=== PATIENT | female | born 2000 | race Caucasian/White ===

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

== ENCOUNTER 2022-02-04 13:46 | Emergency (ER) | payer OTHER, SELFPAY ==
--- NOTE | 2022-02-04 13:54 | ED.FEMALEGU ---
HPI - Female Genitourinary General Chief complaint: Back Pain/Injury Stated complaint: lower back pain Time Seen by Provider: 02/04/22 14:13 Source: patient and RN notes reviewed Mode of arrival: ambulatory Limitations: no limitations History of Present Illness MD elicited complaint: back pain Related Data Home Medications Medication Instructions Recorded Confirmed No Home Medications 02/04/22 02/04/22 Allergies Allergy/AdvReac Type Severity Reaction Status Date / Time Sulfa (Sulfonamide Allergy Unknown HIVES Verified 02/04/22 14:04 Antibiotics) Review of Systems Review of Systems: CONSTITUTIONAL: Denies malaise, chills, sweats, or fever. CARDIOVASCULAR: Denies chest pain, palpitations, or edema. RESPIRATORY: Denies cough or dyspnea. GASTROINTESTINAL: Denies abdominal pain, nausea, vomiting, diarrhea GENITOURINARY: Reports dysuria, frequency, urgency, suprapubic pressure. Denies flank pain or hematuria. SKIN: Denies rash or itching. MUSCULOSKELETAL: Denies back pain or myalgia. All systems reviewed & are unremarkable except as noted in HPI and below PMFSH Social History Social History (Updated 02/13/21 @ 14:56 by Remy Miranda MD) Smoking status: Never smoker Alcohol intake: never Substance use: current Other substance usage details: Daily Gender identity (if verbalized by the patient): Female Comments At time of signature, agree with nursing past medical, surgical, social and family history. There is no relevant family history pertinent to the presenting complaint Exam Narrative: GENERAL: Well-appearing, well-nourished, and in no acute distress. HEAD: Normocephalic. EYES: PERRLA, conjunctivae clear. NECK: Supple. No lymphadenopathy CHEST: Clear to auscultation. No respiratory distress. HEART: Regular rate and rhythm. ABDOMEN: Soft, nontender upon palpation, nondistended, normal active bowel sounds, no palpable or pulsatile masses, no guarding. No CVA tenderness SKIN: Warm, dry, no rash. NEURO: Alert and oriented x3. PSYCH: Normal mood and affect Course Course Emergency Course: Patient is aware of diagnosis, understands and agrees to treatment plan. Anticipatory guidance given. Patient agrees to follow-up as directed and is aware of reasons to seek care at the emergency department. Portions of this record may have been created with voice recognition software Level of Care: Express Care Visit Vital Signs Vital signs: Reviewed. MDM - Female Genitourinary MDM Narrative Medical decision making narrative: Exam findings and UA show no acute concerns or changes; patient is non-toxic appearing and is in no distress. Patient is appropriate for outpatient treatment and follow-up. Differential Diagnosis Differential diagnosis: Likely urinary tract infection and cystitis Critical Care Time Critical Care Time Critical Care Time: No Discharge Plan Discharge Prescriptions: No Action No Home Medications RF: 0
[2022-02-04 13:58] VITALS: BP 115/54; PULSE 87; RESP 16; TEMP 37.6; O2SAT 100
--- NOTE | 2022-02-04 14:19 | ED.BACK ---
HPI - Back Pain/Injury General Chief Complaint: Back Pain/Injury Stated Complaint: lower back pain Time Seen by Provider: 02/04/22 14:13 Source: patient and RN notes reviewed Mode of arrival: ambulatory Limitations: no limitations History of Present Illness HPI Narrative: 21-year-old female presents with concern for mid low back pain for 1 month. She reports no injury or trauma. She denies loss of bowel or bladder function, perianal anesthesia, abdominal pain, fever. She reports a history of problems with her back. Reports she is recently seen her primary care provider regarding back pain who ordered an x-ray. Reports she never obtained BX. She denies dysuria, urgency, flank pain, fever. Reports urine frequency. MD elicited complaint: back pain Related Data Allergies Allergy/AdvReac Type Severity Reaction Status Date / Time Sulfa (Sulfonamide Allergy Unknown HIVES Verified 02/04/22 14:04 Antibiotics) Review of Systems Review of Systems: CONSTITUTIONAL: Denies malaise, chills, sweats, or fever. CARDIOVASCULAR: Denies chest pain, palpitations, or edema. RESPIRATORY: Denies cough or dyspnea. GASTROINTESTINAL: Denies abdominal pain, nausea, vomiting, diarrhea, loss of bowel function GENITOURINARY: Denies dysuria, hematuria, loss of bladder function. Reports urine frequency SKIN: Denies rash or itching. MUSCULOSKELETAL: Reports low back pain NEUROLOGIC: Denies numbness, weakness, or headache. All systems reviewed & are unremarkable except as noted in HPI and below PMFSH Social History Social History (Updated 02/13/21 @ 14:56 by Remy Miranda MD) Smoking status: Never smoker Alcohol intake: never Substance use: current Other substance usage details: Daily Gender identity (if verbalized by the patient): Female Comments At time of signature, agree with nursing past medical, surgical, social and family history. There is no relevant family history pertinent to the presenting complaint Exam Narrative: GENERAL: Well-appearing, well-nourished, and in no acute distress. HEAD: Normocephalic, atraumatic. EYES: PERRLA and EOMI. NECK: Supple. No lymphadenopathy. CHEST: Clear to auscultation. No respiratory distress. HEART: Regular rate and rhythm. Distal pulses palpable and equal, cap refill <3 seconds ABDOMEN: Soft, nontender, nondistended, normal active bowel sounds, no palpable or pulsatile masses. No CVA tenderness MUSCULOSKELETAL: Normal range of motion and strength in all extremities; 5/5 strength with hip flexion and extension, dorsiflexion and extension, knee flexion and extension, plantar flexion and extension. Normal sensation in dermatomal distributions with sensitivity to light touch and pain. No midline back tenderness to palpation. No paraspinal tenderness. Transfers from lying to sitting to standing. SKIN: Warm, dry, no rash. No ecchymosis, erythema, open wounds to back. NEURO: No focal deficits. Alert and oriented x3. Reflexes intact. Normal gait. PSYCH: Normal mood and affect Course Course Emergency Course: Patient is aware of diagnosis, understands and agrees to treatment plan. Anticipatory guidance given. Patient agrees to follow-up as directed and is aware of reasons to seek care at the emergency department. Portions of this record may have been created with voice recognition software Level of Care: Express Care Visit Vital Signs Vital signs: Vital Signs Temperature 99.6 F 02/04/22 13:58 Pulse Rate 87 02/04/22 13:58 Respiratory Rate 16 02/04/22 13:58 Blood Pressure 115/54 L 02/04/22 13:58 Pulse Oximetry 100 02/04/22 13:58 Temperature 99.6 F 02/04/22 13:58 Pulse Rate 87 02/04/22 13:58 Respiratory Rate 16 02/04/22 13:58 Blood Pressure 115/54 L 02/04/22 13:58 Pulse Oximetry 100 02/04/22 13:58 Reviewed. MDM - Back Pain/Injury MDM Narrative Medical decision making narrative: No risk factors or findings concerning for epidural abscess, diskitis, vertebral
== END 2022-02-04 14:23 | disposition home or self-care (01) ==
PROVIDERS: Emergency Provider Nurse Practitioner; PCP Pediatrics
DX: M54.50 Low back pain, unspecified (principal); E28.2 Polycystic ovarian syndrome
CPT/HCPCS: 81003; 99213; G0463

== ENCOUNTER 2022-12-17 02:59 | Day surgery (SDC) | payer OTHER, SELFPAY ==
[2022-12-06 14:31] VITALS: BMI 28.4
--- NOTE | 2022-12-06 14:37 | PC.NURSE ---
Report to the Outpatient Waiting Room, entrance under the green pavilion located off [facility], at time 0630 on date 12/17/22. Planned Procedure Time: 0830. Time changes happen often and if your time is changed the preop area will call you the afternoon before. - You and your visitor will be asked to self-screen and do not enter if you have any COVID symptoms. - Only one visitor is requested with a max of two and NO children visitors are allowed at this time. - The patient visitor may be requested to leave or wait in car when not with patient due to distancing restrictions. - A mask is optional within the hospital at this time. Patients may have clear liquids (water, carbonated beverages, clear teas, apple juice) until 3 hours prior to surgery with a maximum of 20 ounces. - No food from midnight until time of surgery Take the following medications with a SIP of water the morning of surgery: ANTIBIOTIC DO NOT STOP ANY OF YOUR OTHER PRESCRIPTION MEDICATIONS PRIOR TO SURGERY EXCEPT THE FOLLOWING Medications to discontinue per physician: N/A Date to take last dose: N/A Please no make-up, nail canadian, hairspray, perfume, deodorant, or body powder the day of surgery. No jewelry (including any body piercings) or valuables the day of surgery, leave them at home. Please take a shower or bath the night before, or the morning of, surgery with an antibacterial soap. Wear comfortable, loose fitting clothing. - Jewelry must be removed prior to entering the operating room. Rings and piercings that are not removed may be cut off. - The hospital will not accept responsibility for valuables. - Please leave all valuables, including medications, at home the day of surgery. If you are going home after surgery, a licensed farm truck driver must drive you home. - NO public transportation without another adult if you receive anesthesia. - We recommend that an adult stay with you for 24 hours following discharge. - We also recommend that you do not drive, make important decision, drink alcoholic beverages, or take any drugs that were not prescribed by your health care provider for at least 24 hours after your discharge time. Follow any additional instructions given to you from your surgeon. If you or anyone in your household have experienced Covid symptoms in the past week, please notify your surgeon or the nurse liaison at the phone number below for possible testing. Telephone instructions given to PT - SOLOMON HADDAD and asked if any additional questions and then verbalized understanding. Patient advised to call surgeon office or pre surgery nurse liaison [phone] if any additional questions.
[2022-12-17] VITALS (9 sets, daily range): BP systolic 86–117; BP diastolic 43–69; PULSE 48–72; RESP 15–22; TEMP 36.3–36.8; O2SAT 96–100
[2022-12-17] MEDS: LACTATED RINGERS 1,000 ML 30 ML IV CONT ×2 (07:20→10:14)
[2022-12-17] MEDS: ACETAMINOPHEN 500 MG TABLET 1000 MG PO (07:24)
[2022-12-17] MEDS: KETOROLAC 15 MG/ML VIAL (*BKC) IV PUSH (07:24)
--- NOTE | 2022-12-17 08:19 | P.PNAN_ITS ---
Anes - Initial Pre Proc Eval Procedure: Operation Date: 12/17/22 08:30 Proposed Procedures p Laparoscopic Right Ovarian Cystectomy - Stephen Laguna MD Date/Time: 12/17/22 08:19 Surgeon: Stephen Laguna MD Pre Op Diagnosis: Ovarian Cyst, Right Patient Data Age: 22 Gender: F Height: 1.57 m Weight: 73 kg Last Vital Signs Temp 98.3 F 12/17/22 06:50 Pulse 72 12/17/22 06:50 Resp 16 12/17/22 06:50 BP 117/64 12/17/22 06:50 Pulse Ox 100 12/17/22 06:50 O2 Del Method Room Air 12/17/22 06:50 Allergies Allergy/AdvReac Type Severity Reaction Status Date / Time Sulfa (Sulfonamide Allergy Unknown HIVES Verified 12/17/22 07:31 Antibiotics) Home Medications Medication Instructions Recorded Confirmed Type No Home Medications 12/17/22 12/17/22 History Patient hx anesthesia problems: none Family hx anesthesia problems: none Results Review: All pre-operative results and documents have been reviewed as part of the pre- operative evaluation. [facility]LY [facility] Social History Social History (Updated 02/13/21 @ 14:56 by Remy Miranda MD) Smoking status: Current every day smoker Tobacco type: e-cigarettes/vaping Alcohol intake: never Substance use: former Substance use type: marijuana Other substance usage details: Daily Living arrangements: with friend(s) Gender identity (if verbalized by the patient): Female Spiritual care concerns: No Anes - Eval Final PreProcedure Day of Procedure 12/17/22 08:19 Patient weight: normal Heart: regular rate and rhythm Lungs: clear to auscultation Airway: Mallampati scale class II Neurological: alert and oriented Last oral intake: >/= 8 hours ASA classification: II Emergent: no Anesthetic plan: proceed Anesthesia type and monitoring: general ETT and standard monitoring Results Review: All pre-operative results and documents have been reviewed as part of the pre- operative evaluation. Informed Consent: The patient's anesthetic plan and its attendant risks and benefits were discussed with the patient/family/POA. Questions were solicited and answers provided to the satisfaction of the patient/family/POA.
--- NOTE | 2022-12-17 08:43 | WPDHPUPDATE1 ---
History and Physical Update Update Date/Time: 12/17/22 08:43 History and Physical has been reviewed, including an updated exam of the patient. There are NO changes in the patient's condition. Risks, benefits, and alternatives have been discussed and questions answered. Patient agrees to proceed with procedure.
--- NOTE | 2022-12-17 10:13 | W.PM.PROC2 ---
Procedure Note - Detailed Date of Procedure 12/17/22 Pre-op Diagnosis Ovarian Cyst, Right Post-op Diagnosis Same Procedure Performed Laparoscopic ovarian cystectomy Surgeon Stephen Laguna MD Anesthesia General Indications Pelvic pain Findings right ovarian cyst 3.5 cm Description of Procedure The patient was taken to the operating room. She was prepped and draped in the dorsal lithotomy position after induction general anesthesia. A 5 mm incision was made with a scalpel on the abdominal skin in the left upper quadrant of the abdomen. A 5 mm trocar was inserted into the intra-abdominal cavity under direct visualization the scope. In the same fashion a 5 mm left lower quadrant trocar was inserted and a 5 mm infraumbilical trocar was inserted. right ovarian cystectomy was performed using scissors and cautery. cyst was resected. Drained. The cut surfaces were cauterized. This inside surface of the cyst was completely cauterized. Hematoma was placed on the cut surfaces The pelvis was irrigated. The pneumoperitoneum was reduced. The trocars were removed. Skin was closed with subcuticular 4 micro. The patient's incisions were covered with Dermabond. She was taken recovery room in stable condition. Sponge lap and needle counts were correct x2. Estimated Blood Loss 10 Complications No immediate complications Condition Stable Disposition Same day
[2022-12-17] MEDS: fentaNYL CITRATE INJ (*CRX) 100 MCG/2 ML VIAL 25 MCG IV PUSH ×3 (10:14→11:06)
[2022-12-17] MEDS: ONDANSETRON INJ 4 MG/2 ML VIAL IV PUSH (10:54)
[2022-12-17] MEDS: diphenhydrAMINE HCl INJ 50 MG/ML VIAL 6.25 MG IV PUSH (11:18)
[2022-12-17] MEDS: oxyCODONE HCL (*CRX) 5 MG TAB IR PO (12:25)
== END 2022-12-17 12:40 | disposition home or self-care (01) ==
PROVIDERS: PCP Pediatrics; Visit Provider Obstetrics & Gynecology
PROC: (CPT 49320; principal; 2022-12-17 08:30)
DX: N83.201 Unspecified ovarian cyst, right side (principal); F17.290 Nicotine dependence, other tobacco product, uncomplicated; F12.90 Cannabis use, unspecified, uncomplicated
CPT/HCPCS: 58662; A9270; J1100; J1200; J1885; J2250; J2405; J2704; J2710; J3010; J7120